=== PATIENT | male | born 1990 | race Caucasian/White ===

== ENCOUNTER 2017-06-03 10:57 | Emergency (ER) | payer MEDICAID ==
[~2017-06-03] VITALS: Ht 182.9 cm; Wt 97.5 kg
[2017-06-03] MEDS ORDERED: HYDROmorphone 1mg/ml Carpuject IM ONE (11:15)
[2017-06-03] MEDS ORDERED: NORCO 5-325 TA1 EACH ORAL (11:43)
[2017-06-03 11:58] VITALS: BP 121/75
--- NOTE | 2017-06-03 12:20 | Diagnostic Imaging Report ---
Indications: PAIN Technique: Three views of the right knee Comparison: None Findings: No acute fractures. No dislocations. Joint spaces are preserved. No radiopaque foreign body. Normal mineralization. Impression: No acute process
--- NOTE | 2017-06-03 13:02 | Emergency Room Report ---
History of Present Illness General Chief Complaint: Lower Extremity Injury Source: Patient Present Illness HPI Patient presents emergency department today complaining of right knee pain. Patient states that he was working out yesterday and doing squats when he felt a pop or a crack from right knee. Patient is complaining of the pain in the right knee worse with movement. He is unable to bear weight. He denies any swelling. Denies any other injuries. Denies any prior injuries. Symptoms noted to be moderate to severe. No other modifying factors. No other associated signs and symptoms. No other complaints were noted. Allergies: Coded Allergies: IBUPROFEN (Verified Allergy, Severe, 06/03/17) Uncoded Allergies: SHELLFISH (Allergy, Severe, 06/03/17) Patient History Past Medical History: none Past Surgical History: none Pertinent Family History: none Social History: Denies: smoking, alcohol use, drug use Reviewed Nursing Documentation: PMH: Agreed, PSxH: Agreed Nursing Documentation-PMH Past Medical History: No History, Except For Review of Systems All Other Systems: negative except mentioned in HPI Physical Exam Vital Signs Date Time Temp Pulse Resp B/P (MAP) Pulse Ox O2 Delivery O2 Flow Rate FiO2 06/03/17 11:05 98.1 87 16 129/90 97 Room Air Sp02 EP Interpretation: reviewed, normal General Appearance: normal inspection, well appearing, no apparent distress, alert Head: atraumatic Eyes: bilateral eye normal inspection ENT: normal ENT inspection, hearing grossly normal, normal voice Neck: normal inspection, full range of motion, supple, no bony tend Respiratory: normal inspection, lungs clear, normal breath sounds, no respiratory distress, no retraction, no wheezing Cardiovascular #1: regular rate, rhythm, no edema Gastrointestinal: normal inspection, normal bowel sounds, non tender, soft, no guarding, no hernia Genitourinary: no CVA tenderness Musculoskeletal: normal inspection, back normal, decreased range of motion - right knee tender Neurologic: normal inspection, alert, responsive, speech normal Psychiatric: normal inspection, judgement/insight normal, mood/affect normal Skin: normal inspection, normal color, no rash Medical Decision Making Diagnostic Impression: Primary Impression: Knee pain, right Additional Impression: Injury of lower extremity ER Course Patient presents emergency department today complaining of right knee pain. Differential into considerations include fracture dislocation versus strain. Given patient's presentation I felt the patient likely hurt his right knee. I felt the patient could have a meniscus injury. X-rays were negative. Patient was given crutches. Per patient's request he was given one shot of intramuscular Dilaudid for pain control. He was given prescription for pain medications. He was referred outpatient orthopedics. Patient is advised to follow up with primary doctor in 2-3 days and return the emergency room for any worsening symptoms and as needed. Other X-Ray Diagnostic Results Other X-Ray Diagnostic Results : # of Views/Limited Vs Complete: 2 View, 3 View Indication: Pain EP Interpretation: No Interpretation: no dislocation, no soft tissue swelling, no fractures, nonspecific bowel gas Impression: No acute disease Last Vital Signs Date Time Temp Pulse Resp B/P (MAP) Pulse Ox O2 Delivery O2 Flow Rate FiO2 06/03/17 11:58 82 20 121/75 96 Room Air 06/03/17 11:05 98.1 Status: improved Disposition: HOME, SELF-CARE Condition: Stable Scripts Hydrocodone Bit/Acetaminophen 5-325* (NORCO 5-325*) 1 Each Tablet 1 TAB ORAL Q6H Y for For Pain, #20 TAB 0 Refills Prov: NEFTALI YE M.D. 06/03/17 Referrals: NON PHYSICIAN (PCP) DEVI ROYAL Patient Instructions: Knee - Meniscus Injury, Arthroscopy, Crutch Use, Knee Sprain NEFTALI YE M.D. Jun 03, 2017 13:02
[2017-06-09] MEDS ORDERED: TYLENOL EXTRA500 MG ORAL (12:41)
== END 2017-06-03 12:05 | disposition home or self-care (01) ==
LOC: EMR 12:04
DX: S89.81XA Other specified injuries of right lower leg, initial encounter (principal); Y92.89 Other specified places as the place of occurrence of the external cause; Y93.B2 Activity, push-ups, pull-ups, sit-ups; Z88.6 Allergy status to analgesic agent; Z91.013 Allergy to seafood
CPT/HCPCS: 73562; 96372; 99283; J1170

== ENCOUNTER → 2017-06-09 | Emergency (ER) | payer MEDICAID ==
[~2017-06-09] VITALS: Ht 182.9 cm; Wt 98.4 kg
[~2017-06-09] MED LIST: GABAPENTIN600 MG ORAL; NORCO 5-325 TA1 EACH ORAL; TYLENOL EXTRA500 MG ORAL; traMADol 50mg tab ORAL ONE
[2017-06-09 11:40] VITALS: BP 136/78
--- NOTE | 2017-06-09 14:01 | Emergency Room Report ---
History of Present Illness General Chief Complaint: Pain Source: Patient Present Illness HPI The patient is a 27-year-old male who was seen in this emergency department one week prior for a right knee meniscus injury. He has been unable to followup with his primary doctor or orthopedics. He is now complaining of right foot pain which began this morning for no known reason. He states that he was walking and felt pain at the bottom of his foot described as 9/10 dull ache and is worse with touch. Radiates to the foot. He denies any known injury to the area. He has not taken anything for pain. He received a prescription for [employer] at the last visit but states that he did not fill it as he is in a rehabilitation program. He denies any other symptoms including N, V, F, chills, calf pain Allergies: Coded Allergies: IBUPROFEN (Verified Allergy, Severe, 06/03/17) Uncoded Allergies: SHELLFISH (Allergy, Severe, 06/03/17) Patient History Past Medical History: see triage record Pertinent Family History: none Reviewed Nursing Documentation: PMH: Agreed, PSxH: Agreed Nursing Documentation-PMH Past Medical History: No Stated History Review of Systems All Other Systems: negative except mentioned in HPI Physical Exam Vital Signs Date Time Temp Pulse Resp B/P (MAP) Pulse Ox O2 Delivery O2 Flow Rate FiO2 06/09/17 11:40 98.2 80 18 136/78 97 Room Air Sp02 EP Interpretation: reviewed, normal General Appearance: no apparent distress, alert, GCS 15, non-toxic Head: normocephalic, atraumatic Eyes: bilateral eye normal inspection, bilateral eye PERRL ENT: hearing grossly normal, normal pharynx, no angioedema, normal voice Neck: full range of motion, supple/symm/no masses Musculoskeletal: normal range of motion, no calf tenderness, tender - Plantar surface of R mid forefoot Neurologic: alert, oriented x3, responsive, motor strength/tone normal, sensory intact, speech normal Psychiatric: judgement/insight normal, memory normal, mood/affect normal, no suicidal/homicidal ideation Skin: rash - erythema to R mid forefoot Lymphatic: no adenopathy Procedures Splinting Splinting : Consent: Verbal Location: R foot Pre-Made Type: velcro Splint: cast shoe Pre-Proc Neuro Vasc Exam: normal Post-Proc Neuro Vasc Exam: normal Patient Tolerated: Well Complications: None Medical Decision Making PA Attestation Dr. Bradley is my supervising physician. Patient management was discussed with my supervising physician Diagnostic Impression: Primary Impression: Foot pain Qualified Codes: M79.671 - Pain in right foot ER Course The patient is a 27-year-old male presenting for right foot pain Ddx considered include but not limited to sprain/strain, fracture, contusion, foreign body, cellulitis, among others Physical exam: No apparent distress There is a knee brace on the right knee. Right foot: Plantar surface has erythema to the mid forefoot. Tender to palpation. No edema. Skin is warm and dry. No laceration. No palpable foreign body The patient refused a right foot x-ray A cast shoe is placed on the right foot and the patient is given prescription for Tylenol. He states that he is allergic to Motrin and is unable to take any opiates as he is in a rehabilitation program He states he has an appointment to see his orthopedic doctor in the next week for his right knee ER precautions given Last Vital Signs Date Time Temp Pulse Resp B/P (MAP) Pulse Ox O2 Delivery O2 Flow Rate FiO2 06/09/17 11:40 98.2 80 18 136/78 97 Room Air Status: improved Disposition: HOME, SELF-CARE Condition: Improved Scripts Acetaminophen* (TYLENOL EXTRA STRENGTH*) 500 Mg Tablet 500 MG ORAL Q8H Y for Prn Headache/Temp > 101, #30 TAB 0 Refills Prov: ANABELLA ROSS 06/09/17 Patient Instructions: Foot Contusion Additional Instructions: I discussed my findings with the patient. All questions and concerns have been answered. Treatment and medication compliance have been addressed. I advised the patient that they need to follow up with PMD in 3-5 days. Return to ED if pain remains or worsens, numbness or tingling occurs, new rash is noticed, fever is noticed, or if needed for any reason. Patient verbalized understanding of discharge instructions. ANABELLA ROSS Jun 09, 2017 14:01
== END | disposition home or self-care (01) ==
LOC: EMR 12:34
DX: M79.671 Pain in right foot (principal); Z88.6 Allergy status to analgesic agent; Z91.013 Allergy to seafood
CPT/HCPCS: 99284

== ENCOUNTER 2017-06-29 00:30 | Emergency (ER) | payer MEDICAID ==
[~2017-06-29] VITALS: Ht 182.9 cm; Wt 104.3 kg
[~2017-06-29 00:30] MED LIST changes: -GABAPENTIN600 MG ORAL; -traMADol 50mg tab ORAL ONE
[2017-06-29 00:37] VITALS: BP 134/85
[2017-06-29] MEDS ORDERED: GABAPENTIN600 MG ORAL (00:38)
--- NOTE | 2017-06-29 01:47 | Emergency Room Report ---
History of Present Illness General Chief Complaint: Abdominal Pain Source: Patient Present Illness HPI 27-year-old male walks in [facility] complaint of left arm redness, associated with redness/rash to left arm, and swelling also with "my eyes are itching and burning" after taking five-hour energy drink 2 hours ago, Also complaining of abdominal pain that occurred around the same time, without nausea or vomiting or diarrhea or fever or chills. Endorses no previously known allergic reaction to five-hour energy drink No history of ibuprofen and shellfish allergy but did not take it either recently Denies chest pain, shortness of breath, throat tightness. Allergies: Coded Allergies: IBUPROFEN (Verified Allergy, Severe, 06/03/17) Uncoded Allergies: SHELLFISH (Allergy, Severe, 06/03/17) Patient History Past Medical History: none Past Surgical History: none Pertinent Family History: none Social History: Denies: smoking, alcohol use, drug use Immunizations: UTD Reviewed Nursing Documentation: PMH: Agreed, PSxH: Agreed Review of Systems All Other Systems: negative except mentioned in HPI Physical Exam Vital Signs Date Time Temp Pulse Resp B/P (MAP) Pulse Ox O2 Delivery O2 Flow Rate FiO2 06/29/17 00:34 97.9 96 18 134/85 96 Room Air Sp02 EP Interpretation: reviewed, normal General Appearance: normal inspection, well appearing, no apparent distress, alert, GCS 15, non-toxic Head: normocephalic, atraumatic Eyes: bilateral eye PERRL, bilateral eye EOMI, bilateral eye other - Conjunctiva not injected, no discharge ENT: normal ENT inspection, hearing grossly normal, normal pharynx, no angioedema, normal voice Neck: normal inspection, full range of motion, supple, no bony tend Respiratory: normal inspection, lungs clear, normal breath sounds, no rhonchi, no respiratory distress, no retraction, no accessory muscle use, no wheezing, speaking full sentences Cardiovascular #1: regular rate, rhythm, no edema Gastrointestinal: normal inspection, normal bowel sounds, non tender, soft, no guarding, no hernia Genitourinary: no CVA tenderness Musculoskeletal: normal inspection, back normal, normal range of motion, Levi' s Sign negative Neurologic: normal inspection, alert, oriented x3, responsive, fertilizer mixer III-XII nml as tested, speech normal Psychiatric: normal inspection, judgement/insight normal, mood/affect normal Skin: normal inspection, normal color, other - Left forearm with redness, no actual hives observed. Torso/abdomen no rash. Medical Decision Making Diagnostic Impression: Primary Impression: Rash Additional Impression: Caffeine toxicity ER Course 19-year-old male with questionable left arm rash and eye discharge after taking five-hour energy drink Symptoms most likely related to caffeine toxicity less likely allergic reaction Vital signs stable, afebrile Was given Benadryl and prednisone along with by mouth Tylenol with improvement in symptoms advised avoidance of five-hour energy drink in the future and drinks with heavy caffeine content ER course: Patient has remained stable during ED stay. Disposition: Patient is to be discharged to home. Patient is instructed to follow up with their primary care doctor within 5 days. Strict return precautions discussed with patient such as fever, chills, worsening/severe pain, nausea, vomiting, which may indicate severe illness. Patient verbalizes understanding and agrees with plan. Please note that this Emergency Department Report was dictated using [employer] appliance washing machine mechanic technology software, occasionally this can lead to erroneous entry secondary to interpretation by the dictation equipment Last Vital Signs Date Time Temp Pulse Resp B/P (MAP) Pulse Ox O2 Delivery O2 Flow Rate FiO2 06/29/17 00:37 97.9 95 18 134/85 96 Room Air Status: improved Disposition: HOME, SELF-CARE EMIGDIO GUERRERO M.D. Jun 29, 2017 01:47
== END 2017-06-29 01:55 | disposition home or self-care (01) ==
LOC: EMR 00:50
DX: R21 Rash and other nonspecific skin eruption (principal); T62.8X1A Toxic effect of other specified noxious substances eaten as food, accidental (unintentional), initial encounter; Y92.89 Other specified places as the place of occurrence of the external cause; Z88.6 Allergy status to analgesic agent; Z91.013 Allergy to seafood
CPT/HCPCS: 99284